=== PATIENT | female | born 1955 | race Caucasian/White ===

== ENCOUNTER 2017-11-05 10:43 | Day surgery (SDC) | payer MEDICARE, OTHER ==
[~2017-11-05] VITALS: Ht 157.5 cm; Wt 72.7 kg
[~2017-11-05 10:43] MED LIST: SODIUM CHLORIDE 0.9% 1,000 ML IV ONE
[2017-11-05] MEDS ORDERED: PROPOFOL 1% 20 ML VIAL IVP ONE (12:00)
[2017-11-05] MEDS ORDERED: LIDOCAINE HCL/PF 2% 5 ML VIAL INJ ONE (12:00)
[2017-11-05] MEDS ORDERED: IPRA3AMP23 IH (12:23)
[2017-11-05] MEDS ORDERED: ASPI-1182 PO (12:23)
[2017-11-05] MEDS ORDERED: ONDA4 PO (12:23)
[2017-11-05] MEDS ORDERED: MULT-1251 PO (12:23)
[2017-11-05] MEDS ORDERED: SIMV-260 PO (12:23)
[2017-11-05] MEDS ORDERED: OMEP20 PO (12:23)
== END 2017-11-05 14:50 | disposition home or self-care (01) ==
LOC: SURGERY 10:43
PROVIDERS: ATTEND Internal Medicine Gastroenterology
DX: K29.50 Unspecified chronic gastritis without bleeding (principal); E78.5 Hyperlipidemia, unspecified; J44.9 Chronic obstructive pulmonary disease, unspecified; G71.11 Myotonic muscular dystrophy; E89.0 Postprocedural hypothyroidism; E78.00 Pure hypercholesterolemia, unspecified; F12.21 Cannabis dependence, in remission; Z87.01 Personal history of pneumonia (recurrent); Z93.1 Gastrostomy status; Z93.0 Tracheostomy status; Z79.82 Long term (current) use of aspirin; Z87.891 Personal history of nicotine dependence; Z90.49 Acquired absence of other specified parts of digestive tract; Z98.890 Other specified postprocedural states; Z79.899 Other long term (current) drug therapy
CPT/HCPCS: 43239; 45378; C1769; J2704; J3490

== ENCOUNTER 2018-03-10 06:37 | Day surgery (SDC) | payer MEDICARE, OTHER ==
[~2018-03-10] VITALS: Ht 157.5 cm; Wt 75.0 kg
[~2018-03-10 06:37] MED LIST changes: +ACETAMINOPHEN 325 MG TABLET PO ONE; +ASPI-1182 PO; +IPRA3AMP23 IH; +MULT-1251 PO; +OMEP20 PO; +ONDA4 PO; +RINGERS SOLUTION,LACTATED 500 ML IV ONE; +SIMV-260 PO; -SODIUM CHLORIDE 0.9% 1,000 ML IV ONE
[2018-03-10] MEDS ORDERED: MIDAZOLAM HCL 2 MG/2 ML VIAL IVP ONE (06:38)
[2018-03-10] MEDS ORDERED: FentaNYL CITRATE-PF 100 MCG/2 ML VIAL IVP ONE (06:38)
[2018-03-10] MEDS ORDERED: TETRACAINE HCL/PF 0.5% 4 ML OPHTHALMIC SOLUTION ONE (07:00)
[2018-03-10] MEDS ORDERED: RINGERS SOLUTION,LACTATED 500 ML IV ONE (07:00)
[2018-03-10] MEDS ORDERED: MOXIFLOXACIN HCL 0.5% 3 ML OPHTHALMIC SOLUTION ONE (07:00)
[2018-03-10] MEDS ORDERED: PHENYLEPHRINE HCL 2.5% 2 ML OPHTHALMIC SOLUTION ONE (07:00)
[2018-03-10] MEDS ORDERED: CYCLOPENTOLATE HCL 2% 2 ML OPHTHALMIC SOLUTION ONE (07:00)
[2018-03-10] MEDS ORDERED: DICLOFENAC SODIUM 0.1% 2.5 ML OPHTHALMIC SOLUTION ONE (07:00)
[2018-03-10] MEDS: CYCLOPENTOLATE HCL 2% 2 ML OPHTHALMIC SOLUTION OD SCH ×3 (08:12→08:24)
[2018-03-10] MEDS: DICLOFENAC SODIUM 0.1% 2.5 ML OPHTHALMIC SOLUTION OD SCH ×3 (08:12→08:25)
[2018-03-10] MEDS: TETRACAINE HCL/PF 0.5% 4 ML OPHTHALMIC SOLUTION OD SCH ×3 (08:12→08:24)
[2018-03-10] MEDS: PHENYLEPHRINE HCL 2.5% 2 ML OPHTHALMIC SOLUTION OD SCH ×3 (08:12→08:24)
[2018-03-10] MEDS: MOXIFLOXACIN HCL 0.5% 3 ML OPHTHALMIC SOLUTION OD SCH ×3 (08:12→08:24)
[2018-03-10] MEDS ORDERED: AUD NEB (08:35)
[2018-03-10] MEDS ORDERED: VIT PO (08:35)
[2018-03-10] MEDS ORDERED: TRIAMCINOLONE CREAM TP (08:35)
[2018-03-10] MEDS ORDERED: OMEGA PO (08:35)
== END 2018-03-10 10:15 | disposition home or self-care (01) ==
LOC: SURGERY 06:37
PROVIDERS: ATTEND Ophthalmology
DX: H25.11 Age-related nuclear cataract, right eye (principal); Z53.8 Procedure and treatment not carried out for other reasons; I51.7 Cardiomegaly; E78.00 Pure hypercholesterolemia, unspecified; J44.9 Chronic obstructive pulmonary disease, unspecified; F12.21 Cannabis dependence, in remission; E89.0 Postprocedural hypothyroidism; Z87.01 Personal history of pneumonia (recurrent); Z93.0 Tracheostomy status; Z87.19 Personal history of other diseases of the digestive system; Z90.49 Acquired absence of other specified parts of digestive tract; Z93.1 Gastrostomy status; Z87.891 Personal history of nicotine dependence; Z79.82 Long term (current) use of aspirin; Z98.890 Other specified postprocedural states; Z79.899 Other long term (current) drug therapy
CPT/HCPCS: 93005; J2250; J3010; J7120